=== PATIENT | male | born 1980 | race Caucasian/White ===

== ENCOUNTER 2017-06-03 14:09 | Emergency (ER) | payer SELFPAY ==
[2017-06-03] MEDS ORDERED: Ibuprofen TAB* 600 MG PO ONE (15:37)
[2017-06-03 16:16] VITALS: BP 121/73
--- NOTE | 2017-06-03 16:21 | RAD ---
INDICATION: Trauma sacroiliac joint pain. Comparison is made with a prior study from February 17, 2014. COMPARISON: There are no prior studies available for comparison. TECHNIQUE: 5 views of the lumbar spine were obtained including lateral, oblique, AP and a coned-down lateral view of the lumbar sacral junction. FINDINGS: The vertebra are in normal alignment. No fracture is seen. There is mild degenerative disc disease at the L1-L2 and L2-L3 levels IMPRESSION: 1. NO EVIDENCE FOR FRACTURE. 2. MILD DEGENERATIVE DISC DISEASE.
--- NOTE | 2017-06-03 16:35 | ED ---
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 No LOC, + headache all over currently, mild, with posterior neck pain radiating down to shoulders. + lower back pain with some tingling into L leg. h/o herniated disc in past. recent sinus injury. no bowel. bladder loss. no prior injuries - History Of Current Complaint Chief Complaint: EDBackInjuryPain Stated Complaint: HIT HEAD/LOWER BACK -NECK PAIN Time Seen by Provider: 06/03/17 15:11 Hx Obtained From: Patient Mechanism Of Injury: Blunt Trauma, Fall From A Standing Position Onset/Duration: Started Minutes Ago Onset of Pain: Immediate Severity Currently: Moderate Severity Initially: Moderate Pain Intensity: 7 Pain Scale Used: 0-10 Numeric Location of Head Injury: Diffuse Character: Throbbing Aggravating Factor(s): Movement Alleviating Factor(s): Rest Associated Signs And Symptoms: Neck Pain, Headache - Risk Factors SDH Risk Factor: Male - Allergies/Home Medications Allergies/Adverse Reactions: Allergies Allergy/AdvReac Type Severity Reaction Status Date / Time Amoxicillin Allergy Anaphylatic Verified 11/14/12 17:11 Shock Cefaclor [From Ceclor] Allergy Anaphylatic Verified 11/14/12 17:11 Shock Penicillins Allergy Anaphylatic Verified 11/14/12 17:11 Shock Sulfa Drugs Allergy Anaphylatic Verified 11/14/12 17:11 Shock PMH/Surg Hx/FS Hx/Imm Hx Previously Healthy: Yes Endocrine/Hematology History: Denies: Hx Anticoagulant Therapy, Hx Diabetes, Hx Thyroid Disease Cardiovascular History: Denies: Hx Hypertension, Hx Pacemaker/ICD Respiratory History: Denies: Hx Asthma, Hx Chronic Obstructive Pulmonary Disease (COPD) History: Denies: Hx Renal Disease Neurological History: Reports: Other Neuro Impairments/Disorders - SCIATICA Denies: Hx Dementia, Hx Seizures Psychiatric History: Denies: Hx Substance Abuse Infectious Disease History: No Infectious Disease History: Denies: Hx Hepatitis, Hx Human Immunodeficiency Virus (HIV), Traveled Outside the [place] in Last 30 Days - Family History Known Family History: Positive: Hypertension - Social History Alcohol Use: Weekly Substance Use Type: Reports: None Smoking Status (MU): Never Smoked Tobacco Review of Systems Constitutional: Negative Eyes: Negative ENT: Negative Cardiovascular: Negative Respiratory: Negative Gastrointestinal: Negative Genitourinary: Negative Positive: Arthralgia, Myalgia, Decreased ROM Skin: Negative Positive: Headache Psychological: Normal All Other Systems Reviewed And Are Negative: Yes Physical Exam Triage Information Reviewed: Yes Vital Signs On Initial Exam: Initial Vitals Temp Pulse Resp BP Pulse Ox 97.8 F 83 16 138/85 98 06/03/17 14:28 06/03/17 14:28 06/03/17 14:28 06/03/17 14:28 06/03/17 14:28 Vital Signs Reviewed: Yes Appearance: Positive: Well-Appearing, No Pain Distress, Well-Nourished Skin: Positive: Warm, Skin Color Reflects Adequate Perfusion Head/Face: Positive: Normal Head/Face Inspection Eyes: Positive: EOMI, NORMA, Conjunctiva Clear ENT: Positive: Pharynx normal, TMs normal Dental: Positive: Other - no dental caries, no tenderness to palpation of face. Neck: Positive: Supple, No Lymphadenopathy, Tenderness @ - bilateral tenderness over occiput, minimal cervical tenderness, full cervical ROM, no swelling, edema appreciated. Respiratory/Lung Sounds: Positive: Clear to Auscultation Cardiovascular: Positive: Normal, RRR Musculoskeletal: Positive: Normal, Strength/ROM Intact Neurological: Positive: Normal, Sensory/Motor Intact, Alert, Oriented to Person Place, Time, CN Intact II-III, Reflexes Intact - patellar, Normal Gait, Heel to Toe - heel to bonilla neg b/l, Facial Symmetry, Speech Normal. Negative: Facial Droop, Slurred Speech, Rhomberg - negative, Finger to Nose Psychiatric: Positive: Normal AVPU Assessment: Alert Diagnostics - Vital Signs Vital Signs Temp Pulse Resp BP Pulse Ox 06/03/17 16:15 98.8 F 73 17 121/73 95 06/03/17 14:28 97.8 F 83 16 138/85 98 - Laboratory Lab Statement: Any lab studies that have been ordered have been reviewed, and results considered in the medical decision making process. - Radiology lumbar spine Radiology Interpretation Completed By: Radiologist Head Injury Course/Dx Course Of Treatment: radiograph- negatvie for fracture, follow up with PCP tomorrow lower back strain, torticolus - Diagnoses Differential Diagnosis/HQI/PQRI: Concussion With LOC, Concussion Without LOC, Contusion, Intracranial Bleed, Laceration, Skull Fracture, Zygomatic Fracture Provider Diagnoses: Torticollis, acute, Strain of muscle, fascia and tendon of lower back, initial encounter During the Visit The Following Alert/Code Occurred: Trauma Discharge - Discharge Plan Condition: Good Disposition: HOME Prescriptions: Diazepam TAB(*) [Valium TAB(*)] 5 mg PO Q6H PRN #15 tab MDD 4 PRN Reason: muscle spasm Ibuprofen TAB* [Motrin TAB* 600 MG] 600 mg PO Q6H #8 tab Patient Education Materials: Lumbar Radiculopathy (ED), Lower Back Exercises ( ED), Acute Low Back Pain (ED), Cervical Sprain (ED) Referrals: Session Noah POLANCO [Primary Care Provider] - Additional Instructions: - Valium as needed for muscle spasm - Motrin 600mg every 6 hours for next 2 days to control swelling, pain - Follow up with PCP tomorrow for repeat evaluation
== END 2017-06-03 16:47 | disposition home or self-care (01) ==
LOC: ED 14:09
DX: M43.6 Torticollis (principal); S33.5XXA Sprain of ligaments of lumbar spine, initial encounter; Z88.0 Allergy status to penicillin; Z88.2 Allergy status to sulfonamides; Y35.811A Legal intervention involving manhandling, law enforcement official injured, initial encounter; W19.XXXA Unspecified fall, initial encounter; Y93.89 Activity, other specified; Y92.9 Unspecified place or not applicable
CPT/HCPCS: 72110; 99282; A9270-GY

== ENCOUNTER 2017-09-21 12:06 | Emergency (ER) | payer SELFPAY ==
[2017-09-21 12:26] VITALS: BP 130/73
--- NOTE | 2017-09-21 13:08 | RAD ---
INDICATION: Right knee injury. TECHNIQUE: 4 views of the right knee were obtained. FINDINGS: The bones are in normal alignment. No joint effusion or fracture is seen. Joint spaces appear maintained. IMPRESSION: NO EVIDENCE FOR FRACTURE.
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
[2017-09-21] MEDS ORDERED: Ibuprofen TAB* 600 MG PO ONE (14:34)
== END 2017-09-21 14:53 | disposition home or self-care (01) ==
LOC: ED 12:06
DX: S83.91XA Sprain of unspecified site of right knee, initial encounter (principal); S80.01XA Contusion of right knee, initial encounter; W03.XXXA Other fall on same level due to collision with another person, initial encounter; Y93.89 Activity, other specified; Y92.89 Other specified places as the place of occurrence of the external cause; Z88.3 Allergy status to other anti-infective agents; Z88.0 Allergy status to penicillin; Z88.2 Allergy status to sulfonamides
CPT/HCPCS: 99282; A9270-GY